=== PATIENT | female | born 1985 | race Caucasian/White ===

== ENCOUNTER → 2020-05-13 13:23 | Outpatient (BNVA) | payer OTHER, SELFPAY | PROVIDERS: Visit Provider Nurse Practitioner Family | DX: Z20.828 Contact with and (suspected) exposure to other viral communicable diseases (principal) | CPT/HCPCS: 87635 ==

== ENCOUNTER → 2022-09-28 17:14 | Outpatient (BNVA) | payer OTHER, SELFPAY | PROVIDERS: PCP Nurse Practitioner Family; Visit Provider Nurse Practitioner Family | DX: Z13.6 Encounter for screening for cardiovascular disorders (principal); R53.83 Other fatigue; F41.9 Anxiety disorder, unspecified; F32.A Depression, unspecified | CPT/HCPCS: 80053; 80061; 82306; 82607; 84439; 84443; 85025 ==

== ENCOUNTER → 2023-05-26 12:43 | Outpatient (BNVA) | payer OTHER, SELFPAY | PROVIDERS: PCP Nurse Practitioner Family; Visit Provider Nurse Practitioner Family | DX: Z12.4 Encounter for screening for malignant neoplasm of cervix (principal); F41.9 Anxiety disorder, unspecified; F32.A Depression, unspecified | CPT/HCPCS: 80053; 84443; 85025; 87624 ==

== ENCOUNTER → 2023-07-22 09:30 | Outpatient (BNVA) | payer OTHER, SELFPAY | PROVIDERS: PCP Nurse Practitioner Family; Visit Provider Nurse Practitioner Family | DX: N28.9 Disorder of kidney and ureter, unspecified (principal) | CPT/HCPCS: 80048 ==

== ENCOUNTER → 2025-05-08 11:20 | Outpatient (BNVA) | payer OTHER, SELFPAY | PROVIDERS: PCP Nurse Practitioner Family; Visit Provider Nurse Practitioner Family | DX: K21.9 Gastro-esophageal reflux disease without esophagitis (principal) | CPT/HCPCS: 80053; 84439; 84443; 85025 ==

== ENCOUNTER 2025-05-24 07:54 | Outpatient (CLI) | payer OTHER, SELFPAY ==
--- NOTE | 2025-05-24 08:00 | USR_ITS ---
PROCEDURE INFORMATION: Exam: US Abdomen, Limited; Right Upper Quadrant Exam date and time: 05/24/2025 8:04 AM Age: 39 years old Clinical indication: Abdominal pain; Localized; Right upper quadrant (ruq); Additional info: R10.11 - right upper quadrant pain TECHNIQUE: Imaging protocol: Real time ultrasound of the abdomen with image documentation. Limited exam focused on the right upper quadrant. COMPARISON: No relevant prior studies available. FINDINGS: Liver: Normal. No masses. Patent main portal vein with normal direction of flow. Gallbladder: Normal. No gallstones. There is no gallbladder wall thickening. Biliary ducts: Normal. No stones. No dilation. Pancreas: Obscured by overlying bowel gas. Right kidney: Normal. No mass. No hydronephrosis. US/US gall bladder [id number] IMPRESSION: No acute findings.
--- NOTE | 2025-05-24 08:30 | USR_ITS ---
PROCEDURE INFORMATION: Exam: US Left Limited Joint or Other Non-Vascular Extremity Structure Exam date and time: 05/24/2025 8:18 AM Age: 39 years old Clinical indication: Mass or lump; Other: Back; Additional info: M79.89 - other specified soft tissue disorders TECHNIQUE: Imaging protocol: US left limited joint or other nonvascular extremity structure. Real-time ultrasound with image documentation. Exam focused on the area of clinical interest. COMPARISON: No relevant prior studies available. FINDINGS: Soft tissues: Focused ultrasound examination of the left back/area of palpable lump demonstrates an encapsulated, oval, isoechoic lesion without internal vascularity in the subcutaneous tissues, measuring approximately 2.8 x 2.8 x 0.5 cm. No cyst, fluid collection, lymphadenopathy or hyperemia identified. US/US soft tissue/extremity [id number] IMPRESSION: Imaging findings of subcutaneous lipoma.
== END 2025-05-24 07:55 | disposition home or self-care (01) ==
LOC: RAD 07:57
PROVIDERS: PCP Nurse Practitioner Family; Visit Provider Nurse Practitioner Family
DX: R10.11 Right upper quadrant pain (principal); M79.89 Other specified soft tissue disorders; R22.2 Localized swelling, mass and lump, trunk; D17.1 Benign lipomatous neoplasm of skin and subcutaneous tissue of trunk
CPT/HCPCS: 76705; 76882

== ENCOUNTER 2025-06-02 16:06 | Emergency (ER) | payer OTHER, SELFPAY ==
[2025-06-02 16:06] VITALS: PULSE 85; RESP 16; TEMP 36.3; O2SAT 100; BMI 29.7
--- NOTE | 2025-06-02 16:19 | ED_ITS ---
HPI - Nausea/Vomiting/Diarrhea 2 General: Chief complaint: Nausea/Vomiting/Diarrhea Stated complaint: n/v/d Time Seen by Provider: 06/02/25 16:07 History of Present Illness: 39-year-old female patient presents to [facility] emergency department today for complaint of intractable nausea, vomiting, and diarrhea. Patient reports that she has had about 4 episodes of diarrhea along with many episodes of vomiting today. She reports that her last menstrual cycle was around 1 year ago and that she is currently breast-feeding. She reported that she tried some Zofran at home and was unable to keep it down. Associated nausea: Yes Associated symtoms: Reports nausea Related Data Previous Rx's ?Medication ?Instructions ?Recorded duloxetine 60 mg capsule,delayed See Rx Instructions . Route 11/17/23 release .COMPLEX #90 caps pantoprazole 40 mg tablet,delayed 40 mg PO DAILY #90 t abs 05/08/25 release (Protonix) Allergies Allergy/AdvReac Type Severity Reaction Status Date / Time Penicillins Allergy Mild rash Verified 05/26/23 09:08 Review of Systems 2 GI: Reports: nausea, vomiting, diarrhea and GI cramping PFS ED 2 PFSH: Medical History (Updated 06/02/25 @ 18:15 by Frieda Mills NP) Chronic low back pain GERD (gastroesophageal reflux disease) Abnormal Pap smear of cervix Lump of right breast Depression Surgical History History of cone biopsy of cervix History of surgical removal of ganglion cyst History of right knee surgery Family History Mother Hypertension Hypothyroidism Anxiety and depression Father Hyperlipidemia Hypertension Coronary artery disease with history of myocardial infarction without history of CABG 4 vessell CABG Social History Smoking and tobacco/nicotine status: never used tobacco/nicotine Second hand smoke exposure: Yes Alcohol intake: current Alcohol intake frequency: few times a week Alcohol type: beer Substance/Drug Use: current Substance/Drug use frequency: daily Other substance/drug use details: medical prashant ortiz Caregiver/support person: Yes Lives independently: Yes Household members: spouse and children Housing: House Marital status: Number of children: 2 service: No Current occupational status: employed Current gender identity: Female Special linda needs: No Physical Exam 2 Const: COMMON NORMALS: no acute distress, average body habitus, patient oriented x3, no limitations, healthy appearing, alert and well nourished Neck/C-Spine: COMMON NORMALS: no JVD Resp: COMMON NORMALS: normal respiratory effort, No retractions, No use of accessory muscles and clear to auscultation bilaterally AUSCULTATION: clear to auscultation bilaterally Cardio: COMMON NORMALS: no JVD, regular rate, regular rhythm, S1 normal heart sound present, S2 normal heart sound present, No gallops present (Cardio), No clicks present (Cardio), No murmurs present (Cardio) and Peripheral pulses 2+ throughout RATE: regular rate RHYTHM: regular rhythm HEART SOUNDS: S1 normal heart sound present and S2 normal heart sound present PERIPHERAL PULSES: Peripheral pulses 2+ throughout GI: COMMON NORMALS: Soft to palpation, non-tender, No hepatosplenomegaly present, no masses and no bruits AUSCULTATION: Yes Hyperactive bowel sounds present PALPATION: Yes Soft to palpation and Yes No hepatosplenomegaly present Neuro: COMMON NORMALS: patient oriented x3 SENSORIUM/ORIENTATION: Yes alert Course 2 Vital Signs: Vital signs: Vital Signs Temperature 97.3 F L 06/02/25 16:06 Pulse Rate 85 06/02/25 16:06 Respiratory Rate 16 06/02/25 16:06 Blood Pressure 139/93 06/02/25 16:20 Pulse Oximetry 100 06/02/25 16:06 Oxygen Delivery Me thod Room Air 06/02/25 16:06 MDM - Nausea/Vomiting/Diarrhea Medical Decision Making 39-year-old female patient presents to the emergency department today for complaint of intractable nausea, vomiting, and diarrhea. Patient reports that she has had about 4 episodes of diarrhea along with many episodes of vomiting today. She reports that her last menstrual cycle was around 1 year ago and that she is currently breast-feeding. She reported that she tried some Zofran at home and was unable to keep it down. Patient and I discussed if she is sure she is not at this time she reported to me she is unsure as she has relied on breast-feeding. Patient denies any focal abdominal pain she reports she is having abdominal cramping. She will be given a liter of normal saline for rehydration purposes along with IV Zofran for nausea. Patient continues to be nauseous she will be given oral Phenergan and reassess with a p.o. challenge. Patient has remained hemodynamically stable here in the emergency department she has no focal abdominal pain, no rebound tenderness, no indication for imaging at this time. Lab Data 06/02/25 16:37 06/02/25 16:37 Laboratory Results WBC 7.25 10^3/uL (3.29-11.43) 06/02/25 16:37 RBC 4.54 10^6/uL (3.85-5.65) 06/02/25 16:37 Hgb 11.20 g/dL (11.27-16.99) L 06/02/25 16:37 Hct 35.5 % (36-47) L 06/02/25 16:37 MCV 78.2 fl (85-98) L 06/02/25 16:37 MCH 24.7 pg (27-33) L 06/02/25 16:37 MCHC 31.5 g/dL (30-55) 06/02/25 16:37 RDW 13.2 % (12.1-15.1) 06/02/25 16:37 Plt Count 269 10^3/cmm (157-399) 06/02/25 16:37 MPV 9.3 fL (7.4-10.4) 06/02/25 16:37 Neut % (Auto) 87.1 % 06/02/25 16:37 Lymph % (Auto) 6.2 % 06/02/25 16:37 Rowan % (Auto) 6.3 % 06/02/25 16:37 Eos % (Auto) 0.0 % 06/02/25 16:37 Baso % (Auto) 0.3 % 06/02/25 16:37 Neut # (Auto) 6.31 10^3/uL (1.8-7.7) 06/02/25 16:37 Lymph # (Auto) 0.5 10^3/uL (0.8-4.8) L 06/02/25 16:37 Rowan # (Auto) 0.5 10^3/uL (0.2-0.9) 06/02/25 16:37 Eos # (Auto) 0.0 10^3/uL (0.0-0.8) 06/02/25 16:37 Baso # (Auto) 0.0 10^3/uL (0.0-0.1) 06/02/25 16:37 Nucleated RBC % (auto) 0 % 06/02/25 16:37 Nucleated RBCs # 0.0 /100WBC 06/02/25 16:37 Sodium 140 mmol/L (136-145) 06/02/25 16:37 Potassium 3.9 mmol/L (3.5-5.1) 06/02/25 16:37 Chloride 105 mmol/L (98-107) 06/02/25 16:37 Carbon Dioxide 19 mmol/L (22-29) L 06/02/25 16:37 Anion Gap 19.9 (5-19) H 06/02/25 16:37 BUN 17 mg/dL (6-20) 06/02/25 16:37 Creatinine 0.9 mg/dL (0.5-0.9) 06/02/25 16:37 GFR Calculation 70.1 mL/min (90-130) L 06/02/25 16:37 Glucose 169 mg/dL (65-115) H 06/02/25 16:37 Calculated Osmolality 295 mOsm/kg (285-295) 06/02/25 16:37 Calcium 8.8 mg/dL (8.5-10.5) 06/02/25 16:37 Total Bilirubin 0.4 mg/dL (0.15-1.2) 06/02/25 16:37 AST 17 U/L (0-32) 06/02/25 16:37 ALT 13 U/L (0-33) 06/02/25 16:37 Alkaline Phosphatase 104 U/L (35-105) 06/02/25 16:37 Total Protein 7.3 g/dL (6.6-8.7) 06/02/25 16:37 Albumin 4.3 g/dL (3.5-5.2) 06/02/25 16:37 Globulin 3.0 g/dL (1.3-4.6) 06/02/25 16:37 HCG, Qual Negative (Negative) 06/02/25 16:37 No radiology studies performed this visit Discharge Plan Discharge Patient Disposition: Home Clinical Impression: Nausea & vomiting Qualifiers: Vomiting type: unspecified Qualified Code(s): R11.2 - Nausea with vomiting, unspecified Diarrhea Qualifiers: Diarrhea type: unspecified type Qualified Code(s): R19.7 - Diarrhea, unspecified Condition: Stable Prescriptions: No Action pantoprazole [Protonix] 40 mg tablet,delayed release (DR/EC) 40 mg PO DAILY Qty: 90 1RF duloxetine 60 mg capsule,delayed release(DR/EC) See Rx Instructions .ROUTE .COMPLEX Qty: 90 0RF Dose Instruction: TAKE ONE CAPSULE BY MOUTH DAILY Rx Instructions: TAKE ONE CAPSULE BY MOUTH DAILY Discharge Orders: Discharge ED (Routine); Ordered 06/02/25 Ordered By: Frieda Mills Referrals: Yamile Reyes FNP [Primary Care Provider, Family Practice] Discharge Diet: Advance as tolerated Discharge Activity: Resume usual activity Patient Instructions: Acute Nausea and Vomiting (ED), Abdominal Pain (ED), Opioid Safety, Pain Management, Patient Portal & Too Instructions Print Language: [place] Coding Level of Care Code ED 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
[2025-06-02 16:20] VITALS: BP 139/93
[2025-06-02 16:41] LABS: Hematocrit 35.5 % (36-47); Hemoglobin 11.20 g/dL (11.27-16.99); Mean Corpuscular HGB Conc 31.5 g/dL (30-55); Mean Corpuscular Hemoglobin 24.7 pg (27-33); Mean Corpuscular Volume 78.2 fl (85-98); Nucleated Red Blood Cells % 0 %; Platelet Count 269 10^3/cmm (157-399); Red Blood Count 4.54 10^6/uL (3.85-5.65); White Blood Count 7.25 10^3/uL (3.29-11.43)
[2025-06-02 16:57] LABS: Alanine Aminotransferase 13 U/L (0-33); Albumin Level 4.3 g/dL (3.5-5.2); Alkaline Phosphatase 104 U/L (35-105); Anion Gap 19.9 (5-19); Aspartate Amino Transferase 17 U/L (0-32); Blood Urea Nitrogen 17 mg/dL (6-20); Calcium 8.8 mg/dL (8.5-10.5); Carbon Dioxide 19 mmol/L (22-29); Chloride 105 mmol/L (98-107); Globulin 3.0 g/dL (1.3-4.6); Glucose 169 mg/dL (65-115); HCG, Serum Qual Negative (Negative); Osmolality Calculated 295 mOsm/kg (285-295); Potassium 3.9 mmol/L (3.5-5.1); Sodium 140 mmol/L (136-145); Total Protein 7.3 g/dL (6.6-8.7)
[2025-06-02] MEDS: ondansetron 2 mg/ML SDV 2 mL 4 MG IVP (17:02)
[2025-06-02 19:14] VITALS: BP 161/92; PULSE 83; RESP 17; TEMP 36.7; O2SAT 100
== END 2025-06-02 19:16 | disposition home or self-care (01) ==
PROVIDERS: Emergency Provider Nurse Practitioner; PCP Nurse Practitioner Family
DX: R11.2 Nausea with vomiting, unspecified (principal); R19.7 Diarrhea, unspecified
CPT/HCPCS: 80053; 84703; 85025; 96374; 99284; J2405; J7030; Q0169

== ENCOUNTER 2025-06-18 09:43 | Day surgery (SDC) | payer OTHER, SELFPAY ==
--- NOTE | 2025-06-18 10:06 | ANES.PREANE2 ---
Pre-Anesthetic Assessment Height/Weight: Height 1.7 m Preop Diagnosis: gerd Operation Date: 06/18/25 11:15 Proposed Procedures p EGD EGD with Biopsy 82627 K21.9(Not Applicable) - Fadi Rubin MD Familial anesthetic complications: none Was Beta Forrest taken within 24 hours: N/A Was Clonidine taken within 24 hours: N/A Last intake: 199906/17/25 Social social drinker, quit smoking 10/2023 Exam alert, oriented x 3, clear to auscultation bilaterally and regular rate & rhythm Airway Submandibular: Other (TMD<3) Cervical ROM: within normal limits Mallampati: Class II Dentition: chipped History/ROS No significant history except as noted Pulmonary None reported CV/HEM pre-e with None reported Hepatic None reported GI Gastroesophageal Reflux Disease Metabolic None reported Musc/skel None reported Neuropsych Anxiety and Depression Anesthetic Plan ASA status: 2 Anesthesia: Anesthesia Evaluation and MAC Risk of > 500 ml blood loss (7ml/kg in children): No Medications/Allergies Home Medications ?Medication ?Instructions ?Recorded ?Confirmed ?Last Taken ?Type duloxetine 60 mg capsule,delayed 60 mg PO DAILY 06/12/25 06/18/25 06/17/25 History release pantoprazole 40 mg tablet,delayed 40 mg PO BID 06/12/25 06/18/25 06/18/25 History release (Protonix) Allergies Allergy/AdvReac Type Severity Reaction Status Date / Time Penicillins Allergy Mild rash Verified 06/12/25 08:37 [facility] Anesthesia Medical History Chronic low back pain GERD (gastroesophageal reflux disease) Abnormal Pap smear of cervix Lump of right breast Depression Surgical History (Updated 06/10/25 @ 08:26 by Julia Mesa LPN) History of cone biopsy of cervix History of surgical removal of ganglion cyst History of right knee surgery Family History Mother Hypertension Hypothyroidism Anxiety and depression Father Hyperlipidemia Hypertension Coronary artery disease with history of myocardial infarction without history of CABG 4 vessell CABG Social History Smoking and tobacco/nicotine status: never used tobacco/nicotine Second hand smoke exposure: Yes Alcohol intake: current Alcohol intake frequency: few times a week Alcohol type: beer Substance/Drug Use: current Substance/Drug use frequency: daily Other substance/drug use details: medical prashant ortiz Caregiver/support person: Yes Lives independently: Yes Household members: spouse and children Housing: House Marital status: Number of children: 2 service: No Current occupational status: employed Current gender identity: Female Special linda needs: No
[2025-06-18 10:15] VITALS: BP 137/83; PULSE 73; RESP 18; O2SAT 99; BMI 29.4
--- NOTE | 2025-06-18 10:20 | W.PM.OPSUD ---
Surgery/Procedure H&P Update DATE OF PROCEDURE: June 18, 2025 DATE H&P PERFORMED: 06/10/25 H&P UPDATE INFORMATION: I have reviewed H&P completed within last 30 days, I have examined patient prior to procedure, No changes to prior documentation and Risks and benefits of the procedure reviewed PREOP DIAGNOSIS: gerd PLANNED PROCEDURE: Operation Date: 06/18/25 11:15 Proposed Procedures p EGD EGD with Biopsy 66375 K21.9(Not Applicable) - Fadi Rubin MD
[2025-06-18 10:21] LABS: OR HCG Qualitative Urine Negative (Negative)
[2025-06-18 10:35] VITALS: BP 100/59; PULSE 76; RESP 16; TEMP 36.6; O2SAT 99
--- NOTE | 2025-06-18 11:19 | ANE.PACU2 ---
Inpatient post-anesthesia follow up: Airway intact: Yes Vital signs: Temperature 97.8 F Pulse Rate 76 Respiratory Rate 16 Blood Pressure 100/59 Pulse Oximetry 99 Oxygen Delivery Me thod Room Air Oxygen Flow Rate Fraction of Inspir ed Oxygen Hydration adequate: Yes Nausea and vomiting: No Pain level: 1 Mental status: Baseline
== END 2025-06-18 11:19 | disposition home or self-care (01) ==
PROVIDERS: Student in an Organized Health Care Education/Training Program; PCP Nurse Practitioner Family; Visit Provider Student in an Organized Health Care Education/Training Program
PROC: 0DJ08ZZ Inspection of Upper Intestinal Tract, Via Natural or Artificial Opening Endoscopic (ICD-10-PCS; principal; 2025-06-18 11:15)
DX: R10.9 Unspecified abdominal pain (principal); K21.9 Gastro-esophageal reflux disease without esophagitis; K29.70 Gastritis, unspecified, without bleeding; F41.8 Other specified anxiety disorders
CPT/HCPCS: 43239; 81025; 88305; J2704; J7030